=== PATIENT | male | born 1955 | race Caucasian/White ===

== ENCOUNTER 2017-03-22 16:04 | Outpatient (CLI) ==
--- NOTE | 2017-03-23 08:37 | DI ---
Exam: Two x-rays of the chest. Comparison: 08/15/2009. Reason for exam: Cough. FINDINGS: No pneumothorax, pleural effusion, or focal consolidation. The cardiac silhouette is not enlarged. Metallic densities are seen overlying the right hemithorax presumably external to the fel[place] ent. Operative changes are seen after midline sternotomy. Impression: 1. No acute cardiopulmonary process. 2. Metallic densities overlying the right hemithorax are presumably external to the patient.
== END 2017-03-22 16:05 | disposition home or self-care (01) ==
LOC: RAD 16:04
PROVIDERS: ATTEND Family Medicine
DX: R05 Cough (principal); I50.9 Heart failure, unspecified; R09.02 Hypoxemia